=== PATIENT | male | born 1955 | race Hispanic/Latino ===

== ENCOUNTER 2018-04-03 01:40 | Emergency (ER) | payer MEDICARE ==
[2018-04-03] MEDS ORDERED: METHYLPREDNISOLONE SOD SUCC 125MG/2ML VIAL ONE (02:01)
[2018-04-03 02:05] LABS: BASOPHILS % (AUTO) 0.7 % (0.0-5.0); EOSINOPHILS % (AUTO) 2.9 % (0.0-8.0); HEMATOCRIT 44.6 % (42-54); LYMPHOCYTES % (AUTO) 14.2 % (21.0-51.0); MEAN CORPUSCULAR HEMOGLOBIN 29.1 pg (27.0-33.0); MEAN CORPUSCULAR HGB CONC 33.3 g/dL (32.0-36.0); MEAN CORPUSCULAR VOLUME 87.2 fL (79-99); MONOCYTES % (AUTO) 6.1 % (3.0-13.0); NEUTROPHILS % (AUTO) 76.1 % (40.0-77.0); NUCLEATED RED BLOOD CELLS 0.1 % (0.0-0.19); PLATELET COUNT (AUTO) 248 K/uL (130-400); RED BLOOD CELL COUNT(AUTO) 5.12 MIL/uL (4.50-6.20); RED CELL DISTRIBUTION WIDTH 15.8 % (11.0-15.5); WHITE BLOOD COUNT (AUTO) 12.3 K/uL (4.8-10.8)
[2018-04-03] MEDS ORDERED: IPRATROPIUM/ALBUTEROL SULFATE 3 ML SOLUTION IH ONE (02:13)
[2018-04-03 02:16] LABS: CREATININE 0.7 mg/dL (0.5-1.5); POTASSIUM 4.1 mmol/L (3.5-5.1)
[2018-04-03 02:20] LABS: INR 1.02 (0.85-1.15); PARTIAL THROMBOPLASTIN TIME 26.2 SEC (26.3-35.5); PROTHROMBIN TIME 10.7 SEC (9.6-11.6)
[2018-04-03 02:21] LABS: ALBUMIN 3.6 g/dL (3.5-5.0); BILIRUBIN,TOTAL 0.5 mg/dL (0.2-1.0); TOTAL PROTEIN, SERUM 6.9 g/dL (6.0-8.3)
[2018-04-03 02:30] LABS: B-TYPE NATRIURETIC PEPTIDE 756 pg/mL (0-100)
[2018-04-03] MEDS ORDERED: FUROSEMIDE 10 MG/ML 4ML VIAL ONE (03:17)
== END 2018-04-03 03:40 | disposition home or self-care (01) ==
LOC: EDH 01:40
DX: J40 Bronchitis, not specified as acute or chronic (principal); J30.9 Allergic rhinitis, unspecified; E11.9 Type 2 diabetes mellitus without complications; I10 Essential (primary) hypertension; Z95.1 Presence of aortocoronary bypass graft; Z88.0 Allergy status to penicillin; Z72.0 Tobacco use
CPT/HCPCS: 36415; 71045; 80053; 83880; 84484; 85025; 85610; 85730; 93005; 94640; 96374; 96375; 99285; J1940; J2930

== ENCOUNTER 2018-04-06 10:05 | Inpatient (IN) | payer MEDICARE ==
[~2018-04-06] VITALS: Ht 162.6 cm; Wt 88.8 kg
[2018-04-06] MEDS ORDERED: IPRATROPIUM/ALBUTEROL SULFATE 3 ML SOLUTION IH ONE ×3 (10:09→14:30)
[2018-04-06] MEDS ORDERED: METHYLPREDNISOLONE SOD SUCC 125MG/2ML VIAL ONE (10:17)
[2018-04-06 10:27] LABS: BASOPHILS % (AUTO) 0.4 % (0.0-5.0); EOSINOPHILS % (AUTO) 0.8 % (0.0-8.0); HEMATOCRIT 54.4 % (42-54); LYMPHOCYTES % (AUTO) 15.8 % (21.0-51.0); MEAN CORPUSCULAR HEMOGLOBIN 28.7 pg (27.0-33.0); MEAN CORPUSCULAR HGB CONC 32.1 g/dL (32.0-36.0); MEAN CORPUSCULAR VOLUME 89.4 fL (79-99); PLATELET COUNT (AUTO) 312 K/uL (130-400); RED BLOOD CELL COUNT(AUTO) 6.09 MIL/uL (4.50-6.20); RED CELL DISTRIBUTION WIDTH 16.3 % (11.0-15.5); WHITE BLOOD COUNT (AUTO) 24.8 K/uL (4.8-10.8)
[2018-04-06 10:38] LABS: ABG BASE EXCESS -2.6 mmol/L (-2.0-3.0); ABG HCO3 23.3 mmol/L (21.0-28.0); ABG OXYGEN SATURATION 98.4 % (95.0-99.0); ABG PCO2 44 mmHg (35-48)
[2018-04-06 10:45] LABS: CARBON DIOXIDE 26 mmol/L (21-32); CHLORIDE 104 mmol/L (101-111); CREATININE 1.2 mg/dL (0.5-1.5); GLOMERULAR FILTR. RATE CALC 65 mL/min (>60); GLUCOSE,RANDOM 261 mg/dL (70-105); POTASSIUM 4.3 mmol/L (3.5-5.1); SODIUM SERUM 142 mmol/L (136-145); UREA NITROGEN, BLOOD 18 mg/dL (7-18)
[2018-04-06] MEDS ORDERED: FUROSEMIDE 10 MG/ML 4ML VIAL ONE (10:45)
[2018-04-06] MEDS ORDERED: LEVOFLOXACIN 500 MG/D5W 100 ML 100 ML ONE (10:45)
[2018-04-06 10:48] LABS: INR 1.11 (0.85-1.15); PARTIAL THROMBOPLASTIN TIME 23.4 SEC (26.3-35.5); PROTHROMBIN TIME 11.6 SEC (9.6-11.6)
[2018-04-06 11:00] LABS: ALANINE AMINOTRANSFERASE 40 U/L (12-78); ASPARTATE AMINOTRANSFERASE 24 U/L (10-37); BILIRUBIN,TOTAL 0.6 mg/dL (0.2-1.0); CREATINE KINASE, TOTAL 91 U/L (21-232); MYOGLOBIN 38 ng/mL (10-92); TOTAL PROTEIN, SERUM 8.3 g/dL (6.0-8.3); TROPONIN I < 0.04 ng/mL (0.00-0.06)
[2018-04-06 11:21] LABS: APPEARANCE,URINE Clear (CLEAR); BILIRUBIN,URINE Negative (NEGATIVE); COLOR,URINE Yellow (YELLOW); GLUCOSE, URINE (UA) Negative (NEGATIVE); KETONES,URINE Negative (NEGATIVE); LEUKOCYTE ESTERASE ,URINE Negative (NEGATIVE); NITRATE,URINE Negative (NEGATIVE); OCCULT BLOOD,URINE Trace (NEGATIVE); PH,URINE 6.5 (5.0-8.0); PROTEIN,URINE 300 (NEGATIVE)
[2018-04-06 11:36] LABS: BACTERIA,URINE Rare /HPF (None Seen); MUCUS,URINE Rare LPF (None Seen); RBC,URINE None Seen /HPF (0-1); SQUAMOUS EPITHELIAL CELL,UR Rare /HPF (0-2); WBC,URINE None Seen /HPF (0-1)
[2018-04-06] MEDS ORDERED: CEFEPIME HCL 1 GM VIAL ONE (12:16)
[2018-04-06] MEDS ORDERED: SODIUM CHLORIDE 0.9% 100 ML IV ONE (12:16)
[2018-04-06] MEDS ORDERED: ONDANSETRON HCL 4 MG/2 ML VIAL IVP PRN (12:30)
[2018-04-06] MEDS ORDERED: SODIUM CHLORIDE 0.9% 10 ML VIAL IVP SCH (12:30)
[2018-04-06] MEDS ORDERED: GLUCAGON 1MG KIT 1 MG ML IM PRN (12:30)
[2018-04-06] MEDS ORDERED: DEXTROSE 50%-WATER 50 ML DISP.SYRIN IV PRN (12:30)
[2018-04-06] MEDS ORDERED: ACETAMINOPHEN 325 MG TAB PO PRN ×2 (12:30)
[2018-04-06] MEDS: IPRATROPIUM/ALBUTEROL SULFATE 3 ML SOLUTION IH SCH ×2 (14:41→22:00)
[2018-04-06] MEDS ORDERED: IOPAMIDOL-370 100 ML VIAL IV ONE (15:21)
[2018-04-06] MEDS: INSULIN R PO SSI SQ SCH ×2 (16:30→21:00)
[2018-04-06 18:50] LABS: CREATINE KINASE MB 4.2 ng/mL (0.5-3.6); TROPONIN I 0.08 ng/mL (0.00-0.06)
[2018-04-06] MEDS ORDERED: LACTATED RINGERS 1000ML 1,000 ML IV ONE (19:01)
[2018-04-06 20:59] VITALS: BP 156/78
[2018-04-06 23:41] VITALS: BP 146/74
[2018-04-07] MEDS: CEFEPIME HCL 1 GM VIAL IVP SCH ×4 (01:13→21:02)
[2018-04-07 03:02] LABS: TROPONIN I 0.05 ng/mL (0.00-0.06)
[2018-04-07 03:56] VITALS: BP 155/76
[2018-04-07] MEDS: INSULIN R PO SSI SQ SCH ×4 (05:26→20:01)
[2018-04-07] MEDS: IPRATROPIUM/ALBUTEROL SULFATE 3 ML SOLUTION IH SCH ×3 (06:14→21:12)
[2018-04-07 07:00] VITALS: BP 126/63
[2018-04-07] MEDS: ENOXAPARIN SODIUM 30 MG/0.3 ML SQ SCH ×2 (09:00→11:00)
[2018-04-07 11:00] VITALS: BP 143/73
[2018-04-07] MEDS: LEVOFLOXACIN 500 MG/D5W 100 ML 100 ML IV SCH (11:00)
[2018-04-07] MEDS: LACTULOSE 20 GM/30 ML UDCUP PO SCH (11:00)
[2018-04-07] MEDS ORDERED: TRAM50TA4 PO (11:30)
[2018-04-07] MEDS ORDERED: METO50 PO (11:30)
[2018-04-07] MEDS ORDERED: SITA100T12 PO (11:30)
[2018-04-07] MEDS ORDERED: PREG75 PO (11:30)
[2018-04-07] MEDS ORDERED: CLOP75TA32 PO (11:30)
[2018-04-07] MEDS ORDERED: MONT10TA24 PO (11:30)
[2018-04-07] MEDS ORDERED: FURO20TA4 PO (11:30)
[2018-04-07] MEDS ORDERED: PANT40TA25 PO (11:30)
[2018-04-07] MEDS ORDERED: ATOR40TA71 PO (11:30)
[2018-04-07] MEDS: CLOPIDOGREL BISULFATE 75 MG TAB PO SCH (13:45)
[2018-04-07] MEDS: METOPROLOL TARTRATE 50 MG TAB PO SCH ×2 (13:45→21:02)
[2018-04-07] MEDS: PANTOPRAZOLE SODIUM 40 MG TABLET.DR PO SCH (13:45)
[2018-04-07] MEDS: FUROSEMIDE 20 MG TABLET PO SCH (13:45)
[2018-04-07] MEDS: PREGABALIN 75 MG CAPSULE PO SCH ×2 (13:45→21:02)
[2018-04-07] MEDS: LINAGLIPTIN 5 MG TABLET PO SCH (13:45)
[2018-04-07 16:00] VITALS: BP 152/72
[2018-04-07 19:30] VITALS: BP 152/82
[2018-04-07] MEDS: ATORVASTATIN CALCIUM 40 MG TABLET PO SCH (21:02)
[2018-04-07] MEDS: MONTELUKAST SODIUM 10 MG TAB PO SCH (21:02)
[2018-04-07 23:44] VITALS: BP 174/81
[2018-04-08 03:38] VITALS: BP 142/74
[2018-04-08] MEDS: CEFEPIME HCL 1 GM VIAL IVP SCH ×3 (04:47→21:16)
[2018-04-08] MEDS: INSULIN R PO SSI SQ SCH ×4 (05:13→21:56)
[2018-04-08] MEDS: IPRATROPIUM/ALBUTEROL SULFATE 3 ML SOLUTION IH SCH ×3 (05:48→21:58)
[2018-04-08 06:28] LABS: HEMATOCRIT 42.4 % (42-54); MEAN CORPUSCULAR HGB CONC 32.9 g/dL (32.0-36.0); MEAN CORPUSCULAR VOLUME 88.3 fL (79-99); PLATELET COUNT (AUTO) 182 K/uL (130-400); RED BLOOD CELL COUNT(AUTO) 4.81 MIL/uL (4.50-6.20); RED CELL DISTRIBUTION WIDTH 16.1 % (11.0-15.5); WHITE BLOOD COUNT (AUTO) 13.2 K/uL (4.8-10.8)
[2018-04-08 06:49] LABS: ALBUMIN 3.1 g/dL (3.5-5.0); BILIRUBIN,TOTAL 0.4 mg/dL (0.2-1.0); CREATININE 0.8 mg/dL (0.5-1.5); MAGNESIUM 2.1 mg/dL (1.80-2.40); POTASSIUM 4.1 mmol/L (3.5-5.1); TOTAL PROTEIN, SERUM 6.3 g/dL (6.0-8.3)
[2018-04-08 07:50] VITALS: BP 161/73
[2018-04-08] MEDS: PREGABALIN 75 MG CAPSULE PO SCH ×2 (08:50→21:15)
[2018-04-08] MEDS: CLOPIDOGREL BISULFATE 75 MG TAB PO SCH (08:50)
[2018-04-08] MEDS: PANTOPRAZOLE SODIUM 40 MG TABLET.DR PO SCH (08:50)
[2018-04-08] MEDS: LACTULOSE 20 GM/30 ML UDCUP PO SCH (08:50)
[2018-04-08] MEDS: LINAGLIPTIN 5 MG TABLET PO SCH (08:50)
[2018-04-08] MEDS: LEVOFLOXACIN 500 MG/D5W 100 ML 100 ML IV SCH (08:50)
[2018-04-08] MEDS: FUROSEMIDE 20 MG TABLET PO SCH (08:50)
[2018-04-08] MEDS: METOPROLOL TARTRATE 50 MG TAB PO SCH ×2 (08:50→21:15)
[2018-04-08] MEDS: TRAMADOL HCL 50 MG TABLET PO PRN ×2 (08:51→14:40)
[2018-04-08] MEDS: ENOXAPARIN SODIUM 30 MG/0.3 ML SQ SCH (09:00)
[2018-04-08 11:10] VITALS: BP 140/76
[2018-04-08] MEDS: GUAIFENESIN-CODEINE 5 ML SYRUP PO PRN (11:15)
[2018-04-08 15:45] VITALS: BP 218/93
[2018-04-08] MEDS ORDERED: HYDRALAZINE HCL 20 MG/ML VIAL IV PRN (17:00)
[2018-04-08] MEDS: HYDRALAZINE HCL 25 MG TABLET PO SCH (17:05)
[2018-04-08 19:42] VITALS: BP 164/98
[2018-04-08] MEDS: TIZANIDINE HCL 2 MG TABLET PO SCH (21:15)
[2018-04-08] MEDS: ATORVASTATIN CALCIUM 40 MG TABLET PO SCH (21:16)
[2018-04-08] MEDS: MONTELUKAST SODIUM 10 MG TAB PO SCH (21:16)
[2018-04-09] VITALS: BP 151/86
[2018-04-09] MEDS: HYDRALAZINE HCL 25 MG TABLET PO SCH ×4 (00:26→18:39)
[2018-04-09] MEDS: GUAIFENESIN-CODEINE 5 ML SYRUP PO PRN ×2 (00:26→22:13)
[2018-04-09] MEDS: TRAMADOL HCL 50 MG TABLET PO PRN ×4 (00:36→22:13)
[2018-04-09 04:00] VITALS: BP 134/72
[2018-04-09] MEDS: CEFEPIME HCL 1 GM VIAL IVP SCH ×3 (04:32→22:05)
[2018-04-09] MEDS: IPRATROPIUM/ALBUTEROL SULFATE 3 ML SOLUTION IH SCH ×3 (05:47→21:27)
[2018-04-09] MEDS: INSULIN R PO SSI SQ SCH ×4 (06:30→22:10)
[2018-04-09 08:00] VITALS: BP 160/92
[2018-04-09] MEDS: PREGABALIN 75 MG CAPSULE PO SCH ×2 (10:07→22:06)
[2018-04-09] MEDS: CLOPIDOGREL BISULFATE 75 MG TAB PO SCH (10:07)
[2018-04-09] MEDS: LINAGLIPTIN 5 MG TABLET PO SCH (10:07)
[2018-04-09] MEDS: LACTULOSE 20 GM/30 ML UDCUP PO SCH (10:07)
[2018-04-09] MEDS: FUROSEMIDE 20 MG TABLET PO SCH (10:07)
[2018-04-09] MEDS: ENOXAPARIN SODIUM 30 MG/0.3 ML SQ SCH (10:08)
[2018-04-09] MEDS: PANTOPRAZOLE SODIUM 40 MG TABLET.DR PO SCH (10:08)
[2018-04-09] MEDS: METOPROLOL TARTRATE 50 MG TAB PO SCH ×2 (10:08→22:06)
[2018-04-09 12:00] VITALS: BP 137/70
[2018-04-09] MEDS: METHYLPREDNISOLONE SOD SUCC 40MG/ML 1ML IVP SCH (13:30)
[2018-04-09] MEDS: LEVOFLOXACIN 500 MG TABLET PO SCH (13:30)
[2018-04-09 16:00] VITALS: BP 150/77
[2018-04-09] MEDS: NAPROXEN 500 MG TABLET PO PRN (17:01)
[2018-04-09 20:30] VITALS: BP 179/83
[2018-04-09] MEDS: ATORVASTATIN CALCIUM 40 MG TABLET PO SCH (22:06)
[2018-04-09] MEDS: TIZANIDINE HCL 2 MG TABLET PO SCH (22:06)
[2018-04-09] MEDS: MONTELUKAST SODIUM 10 MG TAB PO SCH (22:06)
[2018-04-10] VITALS: BP 139/76
[2018-04-10] MEDS: HYDRALAZINE HCL 25 MG TABLET PO SCH ×4 (00:03→18:00)
[2018-04-10] MEDS: CEFEPIME HCL 1 GM VIAL IVP SCH ×3 (03:58→23:54)
[2018-04-10] MEDS: NAPROXEN 500 MG TABLET PO PRN (03:58)
[2018-04-10 04:00] VITALS: BP 163/81
[2018-04-10 04:50] LABS: HEMATOCRIT 44.6 % (42-54); MEAN CORPUSCULAR HEMOGLOBIN 29.2 pg (27.0-33.0); MEAN CORPUSCULAR VOLUME 88.4 fL (79-99); PLATELET COUNT (AUTO) 240 K/uL (130-400); RED BLOOD CELL COUNT(AUTO) 5.05 MIL/uL (4.50-6.20); RED CELL DISTRIBUTION WIDTH 15.9 % (11.0-15.5); WHITE BLOOD COUNT (AUTO) 14.7 K/uL (4.8-10.8)
[2018-04-10 05:06] LABS: ALBUMIN 3.4 g/dL (3.5-5.0); BILIRUBIN,TOTAL 0.4 mg/dL (0.2-1.0); CREATININE 0.9 mg/dL (0.5-1.5); MAGNESIUM 1.9 mg/dL (1.80-2.40); POTASSIUM 3.9 mmol/L (3.5-5.1); TOTAL PROTEIN, SERUM 6.7 g/dL (6.0-8.3)
[2018-04-10] MEDS: IPRATROPIUM/ALBUTEROL SULFATE 3 ML SOLUTION IH SCH ×3 (05:59→21:43)
[2018-04-10] MEDS: INSULIN R PO SSI SQ SCH ×4 (06:38→23:50)
[2018-04-10] MEDS: TRAMADOL HCL 50 MG TABLET PO PRN ×2 (06:39→23:59)
[2018-04-10 07:30] VITALS: BP 197/80
[2018-04-10] MEDS: METHYLPREDNISOLONE SOD SUCC 40MG/ML 1ML IVP SCH (08:45)
[2018-04-10] MEDS: LACTULOSE 20 GM/30 ML UDCUP PO SCH ×2 (08:45→08:52)
[2018-04-10] MEDS: FUROSEMIDE 20 MG TABLET PO SCH (08:46)
[2018-04-10] MEDS: LINAGLIPTIN 5 MG TABLET PO SCH (08:46)
[2018-04-10] MEDS: PANTOPRAZOLE SODIUM 40 MG TABLET.DR PO SCH (08:46)
[2018-04-10] MEDS: CLOPIDOGREL BISULFATE 75 MG TAB PO SCH (08:46)
[2018-04-10] MEDS: PREGABALIN 75 MG CAPSULE PO SCH ×2 (08:46→23:41)
[2018-04-10] MEDS: METOPROLOL TARTRATE 50 MG TAB PO SCH ×2 (08:46→23:41)
[2018-04-10] MEDS: ENOXAPARIN SODIUM 30 MG/0.3 ML SQ SCH (08:47)
[2018-04-10] MEDS: LEVOFLOXACIN 500 MG TABLET PO SCH (08:52)
[2018-04-10] MEDS ORDERED: LEVOFLOXACIN 500 MG TABLET PO SCH (09:00)
[2018-04-10 11:00] VITALS: BP 146/81
[2018-04-10] MEDS ORDERED: MAGNESIUM HYDROXIDE 30 ML/UDCUP PO SCH (13:00)
[2018-04-10 16:00] VITALS: BP 135/57
[2018-04-10 20:00] VITALS: BP 140/71
[2018-04-10] MEDS: MONTELUKAST SODIUM 10 MG TAB PO SCH (23:41)
[2018-04-10] MEDS: ATORVASTATIN CALCIUM 40 MG TABLET PO SCH (23:41)
[2018-04-10] MEDS: TIZANIDINE HCL 2 MG TABLET PO SCH (23:41)
[2018-04-10] MEDS: GUAIFENESIN-CODEINE 5 ML SYRUP PO PRN (23:54)
[2018-04-11] VITALS: BP 138/58
[2018-04-11] MEDS: HYDRALAZINE HCL 25 MG TABLET PO SCH ×3 (00:56→13:28)
[2018-04-11 04:00] VITALS: BP 130/65
[2018-04-11] MEDS: CEFEPIME HCL 1 GM VIAL IVP SCH ×2 (04:38→13:27)
[2018-04-11] MEDS: IPRATROPIUM/ALBUTEROL SULFATE 3 ML SOLUTION IH SCH (06:14)
[2018-04-11] MEDS: INSULIN R PO SSI SQ SCH ×2 (06:41→11:30)
[2018-04-11 08:08] VITALS: BP 118/56
[2018-04-11] MEDS: FUROSEMIDE 20 MG TABLET PO SCH (08:42)
[2018-04-11] MEDS: ENOXAPARIN SODIUM 30 MG/0.3 ML SQ SCH (08:42)
[2018-04-11] MEDS: LEVOFLOXACIN 500 MG TABLET PO SCH (08:42)
[2018-04-11] MEDS: METOPROLOL TARTRATE 50 MG TAB PO SCH (08:42)
[2018-04-11] MEDS: LINAGLIPTIN 5 MG TABLET PO SCH (08:43)
[2018-04-11] MEDS: PREGABALIN 75 MG CAPSULE PO SCH (08:43)
[2018-04-11] MEDS: CLOPIDOGREL BISULFATE 75 MG TAB PO SCH (08:43)
[2018-04-11] MEDS: PANTOPRAZOLE SODIUM 40 MG TABLET.DR PO SCH (08:43)
[2018-04-11] MEDS ORDERED: PREDNISONE 20 MG TABLET PO SCH (09:00)
[2018-04-11 11:53] VITALS: BP 141/79
== END 2018-04-11 14:50 | disposition home or self-care (01) | DRG 871 ==
LOC: EDH 10:05 → EDHIP 12:00 → 2DH 20:54 → 3DH 04-08 23:51
PROVIDERS: ADMIT Internal Medicine Infectious Disease; ATTEND Internal Medicine Infectious Disease
PROC: 5A09357 Assistance with Respiratory Ventilation, Less than 24 Consecutive Hours, Continuous Positive Airway Pressure (ICD-10-PCS; principal; 2018-04-06)
PROC: 5A09357 Assistance with Respiratory Ventilation, Less than 24 Consecutive Hours, Continuous Positive Airway Pressure (ICD-10-PCS; 2018-04-07)
PROC: 5A09357 Assistance with Respiratory Ventilation, Less than 24 Consecutive Hours, Continuous Positive Airway Pressure (ICD-10-PCS; 2018-04-08)
PROC: 5A09357 Assistance with Respiratory Ventilation, Less than 24 Consecutive Hours, Continuous Positive Airway Pressure (ICD-10-PCS; 2018-04-09)
PROC: 5A09357 Assistance with Respiratory Ventilation, Less than 24 Consecutive Hours, Continuous Positive Airway Pressure (ICD-10-PCS; 2018-04-10)
PROC: 5A09357 Assistance with Respiratory Ventilation, Less than 24 Consecutive Hours, Continuous Positive Airway Pressure (ICD-10-PCS; 2018-04-11)
DX: A41.9 Sepsis, unspecified organism (principal); J18.9 Pneumonia, unspecified organism; J96.01 Acute respiratory failure with hypoxia; J44.0 Chronic obstructive pulmonary disease with (acute) lower respiratory infection; J44.1 Chronic obstructive pulmonary disease with (acute) exacerbation; I25.10 Atherosclerotic heart disease of native coronary artery without angina pectoris; E11.65 Type 2 diabetes mellitus with hyperglycemia; E66.9 Obesity, unspecified; G47.33 Obstructive sleep apnea (adult) (pediatric); G89.4 Chronic pain syndrome; K59.00 Constipation, unspecified; R59.1 Generalized enlarged lymph nodes; I11.9 Hypertensive heart disease without heart failure; Z74.01 Bed confinement status; Z68.33 Body mass index [BMI] 33.0-33.9, adult; Z95.1 Presence of aortocoronary bypass graft; Z87.891 Personal history of nicotine dependence; Z88.0 Allergy status to penicillin; Z83.3 Family history of diabetes mellitus
CPT/HCPCS: 36415; 36600; 71045; 71046; 71275; 80053; 81001; 82550; 82553; 82803; 82948; 83605; 83735; 83874; 83880; 84484; 85025; 85027; 85610; 85730; 87040; 87088; 87186; 92610; 93005; 94640; 94660; 94664; 94760; 99291; A4218; J0692; J1650; J1815; J1940; J1956; J2920; J2930; J7120; Q9967

== ENCOUNTER 2018-09-04 11:44 | Observation (INO) | payer MEDICARE ==
[~2018-09-04] VITALS: Ht 162.6 cm; Wt 87.3 kg
[~2018-09-04 11:44] MED LIST: ATOR40TA71 PO; CLOP75TA32 PO; FURO20TA4 PO; METO50 PO; MONT10TA24 PO; PANT40TA25 PO; PREG75 PO; SITA100T12 PO; TRAM50TA4 PO
[2018-09-04 12:12] LABS: BASOPHILS % (AUTO) 1.1 % (0.0-5.0); LYMPHOCYTES % (AUTO) 18.7 % (21.0-51.0); MEAN CORPUSCULAR HGB CONC 33.1 g/dL (32.0-36.0); MEAN CORPUSCULAR VOLUME 87.6 fL (79-99); MONOCYTES % (AUTO) 7.3 % (3.0-13.0); NEUTROPHILS % (AUTO) 65.9 % (40.0-77.0); PLATELET COUNT (AUTO) 258 K/uL (130-400); RED BLOOD CELL COUNT(AUTO) 4.91 MIL/uL (4.50-6.20); RED CELL DISTRIBUTION WIDTH 14.6 % (11.0-15.5); WHITE BLOOD COUNT (AUTO) 12.4 K/uL (4.8-10.8)
[2018-09-04 12:23] LABS: APPEARANCE,URINE Clear (CLEAR); BILIRUBIN,URINE Negative (NEGATIVE); COLOR,URINE Yellow (YELLOW); GLUCOSE, URINE (UA) Negative (NEGATIVE); KETONES,URINE Negative (NEGATIVE); LEUKOCYTE ESTERASE ,URINE Negative (NEGATIVE); NITRATE,URINE Negative (NEGATIVE); OCCULT BLOOD,URINE Negative (NEGATIVE); PROTEIN,URINE Negative (NEGATIVE); UROBILINOGEN,URINE 0.2 mg/dL (0.2-1.0)
[2018-09-04 12:27] LABS: CREATININE 0.9 mg/dL (0.5-1.5); POTASSIUM 3.4 mmol/L (3.5-5.1)
[2018-09-04 12:28] LABS: INR 1.03 (0.85-1.15); PARTIAL THROMBOPLASTIN TIME 27.9 SEC (26.3-35.5); PROTHROMBIN TIME 10.8 SEC (9.6-11.6)
[2018-09-04 12:33] LABS: ALBUMIN 3.9 g/dL (3.5-5.0); BILIRUBIN,TOTAL 0.6 mg/dL (0.2-1.0); TOTAL PROTEIN, SERUM 7.1 g/dL (6.0-8.3)
[2018-09-04 12:45] LABS: B-TYPE NATRIURETIC PEPTIDE 651 pg/mL (0-100)
[2018-09-04] MEDS ORDERED: FUROSEMIDE 10 MG/ML 4ML VIAL ONE (12:52)
[2018-09-04] MEDS ORDERED: FUROSEMIDE 10 MG/ML 2ML VIAL ONE (12:52)
[2018-09-04 17:05] VITALS: BP 145/74
[2018-09-04] MEDS ORDERED: SODIUM CHLORIDE 0.9% 10 ML VIAL IVP PRN (17:15)
[2018-09-04] MEDS: FUROSEMIDE 10 MG/ML 4ML VIAL IVP SCH (18:21)
[2018-09-04] MEDS ORDERED: LORAZEPAM 0.5 MG TABLET PO PRN (20:00)
[2018-09-05] VITALS: BP 119/59
[2018-09-05] MEDS: FUROSEMIDE 10 MG/ML 4ML VIAL IVP SCH ×2 (01:03→08:02)
[2018-09-05] MEDS: TRAMADOL HCL 50 MG TABLET PO PRN ×2 (01:04→23:01)
[2018-09-05 04:00] VITALS: BP 88/55
[2018-09-05 05:44] LABS: HEMATOCRIT 43.2 % (42-54); MEAN CORPUSCULAR HEMOGLOBIN 28.9 pg (27.0-33.0); MEAN CORPUSCULAR HGB CONC 32.9 g/dL (32.0-36.0); MEAN CORPUSCULAR VOLUME 87.8 fL (79-99); NUCLEATED RED BLOOD CELLS 0.1 % (0.0-0.19); PLATELET COUNT (AUTO) 273 K/uL (130-400); RED BLOOD CELL COUNT(AUTO) 4.92 MIL/uL (4.50-6.20); RED CELL DISTRIBUTION WIDTH 14.6 % (11.0-15.5); WHITE BLOOD COUNT (AUTO) 11.2 K/uL (4.8-10.8)
[2018-09-05 06:16] LABS: ALBUMIN 3.7 g/dL (3.5-5.0); BILIRUBIN,TOTAL 0.7 mg/dL (0.2-1.0); CREATININE 0.9 mg/dL (0.5-1.5); TOTAL PROTEIN, SERUM 7.5 g/dL (6.0-8.3)
[2018-09-05 08:00] VITALS: BP 118/65
[2018-09-05] MEDS: METOPROLOL TARTRATE 50 MG TAB PO SCH ×2 (08:01→21:17)
[2018-09-05] MEDS: PANTOPRAZOLE SODIUM 40 MG TABLET.DR PO SCH (08:01)
[2018-09-05] MEDS: CLOPIDOGREL BISULFATE 75 MG TAB PO SCH (08:01)
[2018-09-05] MEDS: PREGABALIN 75 MG CAPSULE PO SCH ×2 (08:01→21:17)
[2018-09-05] MEDS: LINAGLIPTIN 5 MG TABLET PO SCH (08:43)
[2018-09-05] MEDS ORDERED: FUROSEMIDE 20 MG TABLET PO SCH (09:00)
[2018-09-05 11:00] VITALS: BP 98/53
[2018-09-05] MEDS ORDERED: LIDOCAINE HCL-MPF 1% 2ML VIAL IVP PRN (13:45)
[2018-09-05] MEDS ORDERED: POTASSIUM CHLORIDE 10% ELIXIR 20 MEQ/15 ML UDCUP PO PRN (13:45)
[2018-09-05] MEDS ORDERED: POTASSIUM CHLORIDE 20MEQ/100ML 100 ML IV PRN (13:45)
[2018-09-05] MEDS ORDERED: POTASSIUM CHLORIDE 20 MEQ ERTAB PO PRN (13:45)
[2018-09-05 16:00] VITALS: BP 114/55
[2018-09-05] MEDS ORDERED: AZITHROMYCIN 250 MG TABLET PO SCH (17:00)
[2018-09-05] MEDS: FUROSEMIDE 40 MG TABLET PO SCH (18:35)
[2018-09-05] MEDS: BENZONATATE 100 MG CAPSULE PO SCH (18:35)
[2018-09-05] MEDS: IPRATROPIUM 0.5 MG/2.5 ML INH IH SCH ×2 (18:45→23:41)
[2018-09-05 20:00] VITALS: BP 117/67
[2018-09-05] MEDS ORDERED: ATORVASTATIN CALCIUM 40 MG TABLET PO SCH (21:00)
[2018-09-05] MEDS ORDERED: MONTELUKAST SODIUM 10 MG TAB PO SCH (21:00)
[2018-09-06] VITALS: BP 129/83
[2018-09-06] MEDS: BENZONATATE 100 MG CAPSULE PO SCH ×2 (00:59→04:36)
[2018-09-06 04:00] VITALS: BP 98/47
[2018-09-06] MEDS: FUROSEMIDE 40 MG TABLET PO SCH (04:36)
[2018-09-06 07:30] VITALS: BP 113/62
[2018-09-06] MEDS: PREGABALIN 75 MG CAPSULE PO SCH (09:00)
[2018-09-06] MEDS: METOPROLOL TARTRATE 50 MG TAB PO SCH (09:00)
[2018-09-06] MEDS: PANTOPRAZOLE SODIUM 40 MG TABLET.DR PO SCH (09:00)
[2018-09-06] MEDS: CLOPIDOGREL BISULFATE 75 MG TAB PO SCH (09:00)
[2018-09-06] MEDS: LINAGLIPTIN 5 MG TABLET PO SCH (09:12)
[2018-09-06 11:00] VITALS: BP 118/64
[2018-09-06] MEDS: IPRATROPIUM 0.5 MG/2.5 ML INH IH SCH (15:05)
== END 2018-09-06 15:30 | disposition home or self-care (01) ==
LOC: EDH 11:44 → EDHIP 14:16 → 3DH 16:14
PROVIDERS: ADMIT Internal Medicine; ATTEND Internal Medicine
DX: I11.0 Hypertensive heart disease with heart failure (principal); I50.9 Heart failure, unspecified; E11.9 Type 2 diabetes mellitus without complications
CPT/HCPCS: 36415 ×2; 71046; 80053 ×2; 81003; 82948 ×5; 83880; 84484; 85025; 85027; 85610; 85730; 93005; 94640 ×3; 94660 ×2; 94664; 96374; 96376; 99291; A6453; G0378 ×49; J1940 ×5

== ENCOUNTER → 2018-09-25 | Outpatient (CLI) | payer MEDICARE | END | disposition home or self-care (01) | LOC: SHCH 13:02 | PROVIDERS: ATTEND Internal Medicine Cardiovascular Disease | DX: I51.7 Cardiomegaly (principal); J44.9 Chronic obstructive pulmonary disease, unspecified; Z72.89 Other problems related to lifestyle | CPT/HCPCS: 93306 ==

== ENCOUNTER 2018-11-22 13:06 | Emergency (ER) | payer MEDICARE ==
[2018-11-22 13:55] LABS: BASOPHILS % (AUTO) 0.7 % (0.0-5.0); EOSINOPHILS % (AUTO) 0.9 % (0.0-8.0); HEMATOCRIT 42.3 % (42-54); LYMPHOCYTES % (AUTO) 6.7 % (21.0-51.0); MEAN CORPUSCULAR HEMOGLOBIN 27.4 pg (27.0-33.0); MEAN CORPUSCULAR HGB CONC 31.7 g/dL (32.0-36.0); MEAN CORPUSCULAR VOLUME 86.3 fL (79-99); MONOCYTES % (AUTO) 4.5 % (3.0-13.0); NEUTROPHILS % (AUTO) 87.2 % (40.0-77.0); NUCLEATED RED BLOOD CELLS 0.1 % (0.0-0.19); PLATELET COUNT (AUTO) 196 K/uL (130-400); RED BLOOD CELL COUNT(AUTO) 4.91 MIL/uL (4.50-6.20); RED CELL DISTRIBUTION WIDTH 17.1 % (11.0-15.5); WHITE BLOOD COUNT (AUTO) 13.9 K/uL (4.8-10.8)
[2018-11-22] MEDS ORDERED: SODIUM CHLORIDE 0.9% 500ML 500 ML IV ONE (14:00)
[2018-11-22] MEDS ORDERED: MORPHINE SULFATE 4 MG/1ML SYG ONE (14:00)
[2018-11-22] MEDS ORDERED: ONDANSETRON HCL 4 MG/2 ML VIAL ONE (14:00)
[2018-11-22 14:11] LABS: POTASSIUM 3.4 mmol/L (3.5-5.1)
[2018-11-22 14:22] LABS: ALBUMIN 3.7 g/dL (3.5-5.0); BILIRUBIN,TOTAL 0.8 mg/dL (0.2-1.0); CREATININE 0.8 mg/dL (0.5-1.5); TOTAL PROTEIN, SERUM 6.4 g/dL (6.0-8.3)
[2018-11-22 15:08] LABS: ERYTHROCYTE SEDIMENTATION RATE 3 MM/HR (0-20)
[2018-11-22] MEDS ORDERED: IOHEXOL-350 75 ML VIAL IV ONE (15:16)
[2018-11-22] MEDS ORDERED: CLINDAMYCIN HCL 150 MG CAP ONE (16:30)
== END 2018-11-22 16:37 | disposition left against medical advice (07) ==
LOC: EDH 13:06
DX: S50.12XA Contusion of left forearm, initial encounter (principal); K02.9 Dental caries, unspecified; E11.9 Type 2 diabetes mellitus without complications; I10 Essential (primary) hypertension; E78.5 Hyperlipidemia, unspecified; Z88.0 Allergy status to penicillin; Z98.84 Bariatric surgery status; X58.XXXA Exposure to other specified factors, initial encounter; Y93.89 Activity, other specified; Y92.89 Other specified places as the place of occurrence of the external cause; Y99.8 Other external cause status
CPT/HCPCS: 36415; 70487; 73060; 80053; 85025; 85651; 87040 ×2; 93005; 93971; 96374; 96375; 99284; J2270; J2405; J7040; Q9967

== ENCOUNTER 2019-02-10 18:22 | Emergency (ER) | payer MEDICARE ==
[2019-02-10 19:27] LABS: BASOPHILS % (AUTO) 0.9 % (0.0-5.0); EOSINOPHILS % (AUTO) 3.2 % (0.0-8.0); HEMATOCRIT 37.3 % (42-54); LYMPHOCYTES % (AUTO) 14.1 % (21.0-51.0); MEAN CORPUSCULAR VOLUME 84.4 fL (79-99); MONOCYTES % (AUTO) 5.9 % (3.0-13.0); NEUTROPHILS % (AUTO) 75.9 % (40.0-77.0); PLATELET COUNT (AUTO) 314 K/uL (130-400); RED BLOOD CELL COUNT(AUTO) 4.42 MIL/uL (4.50-6.20); RED CELL DISTRIBUTION WIDTH 16.8 % (11.0-15.5); WHITE BLOOD COUNT (AUTO) 12.1 K/uL (4.8-10.8)
[2019-02-10 19:42] LABS: INR 1.1 (0.85-1.15); PARTIAL THROMBOPLASTIN TIME 27.5 SEC (26.3-35.5); PROTHROMBIN TIME 11.5 SEC (9.6-11.6)
[2019-02-10 19:47] LABS: APPEARANCE,URINE Clear (CLEAR); BILIRUBIN,URINE Negative (NEGATIVE); COLOR,URINE Yellow (YELLOW); GLUCOSE, URINE (UA) Negative (NEGATIVE); KETONES,URINE Negative (NEGATIVE); LEUKOCYTE ESTERASE ,URINE Negative (NEGATIVE); NITRATE,URINE Negative (NEGATIVE); OCCULT BLOOD,URINE Negative (NEGATIVE); PH,URINE 6.5 (5.0-8.0); PROTEIN,URINE Trace mg/dL (NEGATIVE)
[2019-02-10 19:49] LABS: POTASSIUM 3.1 mmol/L (3.5-5.1)
[2019-02-10 19:57] LABS: RBC,URINE 0-1 /HPF (0-1); WBC,URINE 0-1 /HPF (0-1)
[2019-02-10 19:58] LABS: BACTERIA,URINE Rare /HPF (None Seen); SQUAMOUS EPITHELIAL CELL,UR Rare /HPF (0-2)
[2019-02-10 20:05] LABS: B-TYPE NATRIURETIC PEPTIDE 1270 pg/mL (0-100)
[2019-02-10 20:06] LABS: BILIRUBIN,TOTAL 0.8 mg/dL (0.2-1.0); TOTAL PROTEIN, SERUM 6.9 g/dL (6.0-8.3)
[2019-02-10 20:07] LABS: ALBUMIN 3.7 g/dL (3.5-5.0)
[2019-02-10] MEDS ORDERED: FUROSEMIDE 10 MG/ML 4ML VIAL ONE (20:35)
[2019-02-10] MEDS ORDERED: POTASSIUM CHLORIDE 10% ELIXIR 20 MEQ/15 ML UDCUP ONE (20:46)
[2019-02-10] MEDS ORDERED: ASPIRIN 325 MG TABLET ONE (20:46)
== END 2019-02-10 21:52 | disposition home or self-care (01) ==
LOC: EDH 18:22
DX: I11.0 Hypertensive heart disease with heart failure (principal); I50.9 Heart failure, unspecified; R06.00 Dyspnea, unspecified; R79.89 Other specified abnormal findings of blood chemistry; E11.9 Type 2 diabetes mellitus without complications; E78.5 Hyperlipidemia, unspecified; J44.9 Chronic obstructive pulmonary disease, unspecified; Z95.1 Presence of aortocoronary bypass graft; Z72.0 Tobacco use; Z88.0 Allergy status to penicillin
CPT/HCPCS: 36415; 71045; 80053; 81001; 82550; 83690; 83880; 84484; 85025; 85610; 85730; 93005; 96374; 99284; J1940

== ENCOUNTER 2019-02-11 16:12 | Observation (INO) | payer MEDICARE ==
[~2019-02-11 16:12] MED LIST changes: +EPINEPHRINE 0.1 MG/ML 10 ML SYG IVP ONE; +ETOMIDATE 2 MG/ML 10 ML VIAL IVP ONE; +SUCCINYLCHOLINE CHLORIDE 20 MG/ML 10 ML VIAL IVP ONE
[2019-02-11] MEDS ORDERED: IPRATROPIUM/ALBUTEROL SULFATE 3 ML SOLUTION IH ONE (17:16)
[2019-02-11] MEDS ORDERED: FUROSEMIDE 10 MG/ML 4ML VIAL ONE (18:34)
[2019-02-11] MEDS ORDERED: FUROSEMIDE 10 MG/ML 2ML VIAL ONE (18:34)
[2019-02-11] MEDS ORDERED: LEVOFLOXACIN 500 MG/D5W 100 ML 100 ML ONE (18:34)
[2019-02-11] MEDS ORDERED: BENZONATATE 100 MG CAPSULE PO ONE (22:47)
[2019-02-12] MEDS ORDERED: EPINEPHRINE 0.1 MG/ML 10 ML SYG ONE ×2 (00:15→00:19)
[2019-02-12 00:17] LABS: BASOPHILS % (AUTO) 1.1 % (0.0-5.0); EOSINOPHILS % (AUTO) 2.2 % (0.0-8.0); HEMATOCRIT 39.1 % (42-54); LYMPHOCYTES % (AUTO) 39.6 % (21.0-51.0); MEAN CORPUSCULAR HEMOGLOBIN 26.5 pg (27.0-33.0); MEAN CORPUSCULAR HGB CONC 30.3 g/dL (32.0-36.0); MEAN CORPUSCULAR VOLUME 87.4 fL (79-99); MONOCYTES % (AUTO) 6.4 % (3.0-13.0); NEUTROPHILS % (AUTO) 50.7 % (40.0-77.0); NUCLEATED RED BLOOD CELLS 0.2 % (0.0-0.19); PLATELET COUNT (AUTO) 296 K/uL (130-400); RED BLOOD CELL COUNT(AUTO) 4.47 MIL/uL (4.50-6.20); RED CELL DISTRIBUTION WIDTH 16.8 % (11.0-15.5); WHITE BLOOD COUNT (AUTO) 18.6 K/uL (4.8-10.8)
[2019-02-12] MEDS ORDERED: EPINEPHRINE 1 MG/ML 30ML VIAL IJ ONE (00:20)
[2019-02-12 00:21] LABS: CREATININE 1.2 mg/dL (0.5-1.5); POTASSIUM 4.2 mmol/L (3.5-5.1)
[2019-02-12 00:26] LABS: ALBUMIN 3.3 g/dL (3.5-5.0); BILIRUBIN,TOTAL 0.5 mg/dL (0.2-1.0); TOTAL PROTEIN, SERUM 7.1 g/dL (6.0-8.3)
[2019-02-12 04:22] LABS: B-TYPE NATRIURETIC PEPTIDE 1559 pg/mL (0-100)
[2019-02-12] MEDS ORDERED: FUROSEMIDE 10 MG/ML 2ML VIAL IVP SCH (06:00)
== END 2019-02-12 04:24 | disposition expired ==
LOC: EDH 16:12 → EDHIP 19:04
PROVIDERS: ADMIT Internal Medicine; ATTEND Internal Medicine
DX: I46.8 Cardiac arrest due to other underlying condition (principal); Z79.899 Other long term (current) drug therapy
CPT/HCPCS: 31500; 36415 ×2; 71045; 80053; 82948; 83880 ×2; 84484 ×2; 85025; 92950; 93005; 94640; 99284; G0378 ×9; J0171 ×4; J0330; J1940 ×2; J1956; J3490